=== PATIENT | female | born 1960 | race Caucasian/White ===

== ENCOUNTER → 2017-01-17 | Day surgery (SDC) | payer OTHER ==
[~2017-01-17] MED LIST: ANTIDEPRESSANT; BACITRACIN30 GM TOP; BENADRYL25 M3 PO; FLEXERIL10 M1 PO; FLEXERIL10 MG PO; IBUPROFEN600 MG PO; LEVAQUIN PO; LYRICA PO; MAGIC MOUTHWASH PO; MUSCLE RELAXER; NO MEDICATIONS; PAIN MED; TYLOX 5/500 CAP1 CAP PO; VIBRAMYCIN100 M1 PO; VICODIN 5/1 TAB 5/50 PO; VITAMIN D; [UNRECOGNIZED DRUG - MIXTURE] PO
--- NOTE | ~2017-01-17 | OR ---
Unit #: [id number] #: [id number] Patient: STONE ABRAMS [id number] [facility] [address] [facility]. [place], [place] [address] [id number] O MR#: [id number] NAME: STONE ABRAMS ROOM: Date of Procedure: 01/17/2017 Admission Date: 01/17/2017 Surgeon: Maximo Browne M.D. : 1960 Attending Physician: Maximo Browne M.D. Primary Care Physician: Vivek Degroot Aprn OPERATIVE REPORT PREOPERATIVE DIAGNOSIS Enlarging left anterior thigh soft tissue mass. POSTOPERATIVE DIAGNOSIS Enlarging left anterior thigh soft tissue mass. PROCEDURE PERFORMED Excisional biopsy of left thigh lipoma measuring 7.5 x 5 x 3 cm. ANESTHESIA General endotracheal anesthesia. ESTIMATED BLOOD LOSS Less than 10 mL. INDICATIONS FOR PROCEDURE Ms. Abrams is a 56-year-old female, who presents with an enlarging soft tissue mass in the anterior left thigh. By history, she believes she may have had some trauma to that area in the past. DESCRIPTION OF PROCEDURE The patient was admitted to [facility], positively identified, and transported to the operating room, and after induction of general endotracheal anesthesia using an LMA mask, she was prepped and draped in usual sterile fashion. In preoperative hold, I had marked the extent of the lesion and a vertical incision was made over the mass. I dissected down through the soft tissue and a multiloculated encapsulated lipoma was encountered in the subcutaneous tissue. It was all above the muscular fascia. I was able to completely excise the mass en bloc and it measured 7.5 x 5 x 3 cm. After the mass had been removed, I used the cautery to open up the loculated areas of the capsule and obtained hemostasis. The space was closed with 3-0 Vicryl interrupted sutures. The skin was reapproximated with 4-0 Monocryl running subcuticular closure and Dermabond skin adhesive. Sponges and needle counts were correct x3. The patient tolerated the procedure well and was transported to recovery in stable condition. Her significant other did not wait in the waiting area, so we will go over the orders with the patient and the significant other when he returns. Dictated by... Maximo Browne M.D. Unit #: [id number] #: [id number] Patient: STONE ABRAMS ANDRY/justin TD: 01/17/2017 10:11 JOB #: [id number] OPERATIVE REPORT Page 1 of 1 X Maximo Browne MD PROCEDURE OPERATIVE NOTE
== END | disposition home or self-care (01) ==
LOC: CSUR 06:41
DX: D17.24 Benign lipomatous neoplasm of skin and subcutaneous tissue of left leg (principal); E65 Localized adiposity; F17.210 Nicotine dependence, cigarettes, uncomplicated; M19.90 Unspecified osteoarthritis, unspecified site; J30.9 Allergic rhinitis, unspecified; Z88.0 Allergy status to penicillin; Z85.828 Personal history of other malignant neoplasm of skin; Z79.899 Other long term (current) drug therapy; Z98.890 Other specified postprocedural states; Z98.1 Arthrodesis status
CPT/HCPCS: 88304; J2250; J3010

== ENCOUNTER 2017-01-26 04:30 | Emergency (ER) | payer OTHER ==
[~2017-01-26] VITALS: Ht 170.2 cm; Wt 68.0 kg
--- NOTE | ~2017-01-26 | CR181 ---
[facility] A Service of [facility] RADIOLOGY TEXT RESULTS PATIENT: STONE ABRAMS LOCATION: [facility] : [birth year] UNIT #: [id number] AGE: [address]: Ingrid Goncalves APRN SEX: F ORDER DR: [id number] [facility]. [place], [place] [address] [id number] MR#: [id number] Acc #: [id number] NAME: STONE ABRAMS. : 1960 SEX: F STUDY DATE/TIME: 01/26/2017 5:23 UNIT: AGUILAR ROOM: STUDY DESCRIPTION: CR Lumbar Spine 2 or 3 Views Attending Physician: Ingrid Goncalves A.P.R.N. Ordering Physician: Ingrid Goncalves A.P.R.N. Primary Care Physician: Vivek Degroot Aprn MEDICAL IMAGING REPORT This report is preliminary unless electronic signature is present EXAM Lumbar spine series 01/26/2017 HISTORY 56-year-old female in the ED complaining of neck pain and low back pain after a fall 2 weeks ago. TECHNIQUE Three-view lumbar spine series. FINDINGS No fracture or other acute osseous abnormality is demonstrated. Severe degenerative facet arthropathy is present throughout the lower cervical spine, there is slight anterolisthesis at L3-4. Moderately severe degenerative disc space changes at L4-5 with more mild disc space narrowing throughout the remainder of the lumbar spine. IMPRESSION 1. No acute osseous abnormality. 2. Multilevel degenerative changes as noted above. Dictated by... Samuel Tobin M.D. THIS IS AN ELECTRONICALLY VERIFIED REPORT Samuel Tobin M.D. at 01/26/2017 9:49 PM SARATH/aj TD: 01/26/2017 08:26 JOB #: [id number] [facility] A Service of [facility] RADIOLOGY TEXT RESULTS PATIENT: STONE ABRAMS LOCATION: [facility] : 64 UNIT #: [id number] AGE: [address]: Ingrid Goncalves APRN SEX: F ORDER DR: MEDICAL IMAGING REPORT Page 1 of 1 COPY
--- NOTE | ~2017-01-26 | CR58 ---
[facility] A Service of [facility] RADIOLOGY TEXT RESULTS PATIENT: STONE ABRAMS LOCATION: [facility] : 64 UNIT #: [id number] AGE: [address]: Ingrid Goncalves APRN SEX: F ORDER DR: [id number] [facility]. [place], [place] [address] [id number] MR#: [id number] Acc #: [id number] NAME: STONE ABRAMS. : 1960 SEX: F STUDY DATE/TIME: 01/26/2017 5:16 UNIT: [facility] ROOM: STUDY DESCRIPTION: CR Cervical Spine 2 or 3 Views Attending Physician: Ingrid Goncalves A.P.R.N. Ordering Physician: Ingrid Goncalves A.P.R.N. Primary Care Physician: Vivek Degroot Aprn MEDICAL IMAGING REPORT This report is preliminary unless electronic signature is present EXAM Cervical spine series 01/26/2017 HISTORY 56-year-old female in the ED complaining of neck pain and back pain after a fall 2 weeks ago. TECHNIQUE Three-view cervical spine series. FINDINGS The exam shows no evidence of fracture or other acute osseous abnormality. Postop changes anterior cervical disc fusion surgery at C4-5 and C5-6. Fixation hardware appears well positioned. Moderate degenerative disc space changes above and below the fusion level at C3-4 and C6-7. Cervical vertebral alignment is normal. IMPRESSION 1. No acute osseous abnormality. 2. Postop changes anterior cervical disc fusion at C4-5 and C5-6. 3. Degenerative changes as noted above. Dictated by... Samuel Tobin M.D. THIS IS AN ELECTRONICALLY VERIFIED REPORT Samuel Tobin M.D. at 01/26/2017 9:49 PM SARATH/aj TD: 01/26/2017 08:24 JOB #: [id number] [facility] A Service [facility] RADIOLOGY TEXT RESULTS PATIENT: STONE ABRAMS LOCATION: [facility] : 64 UNIT #: [id number] AGE: [address]: Ingrid Goncalves APRN SEX: F ORDER DR: MEDICAL IMAGING REPORT Page 1 of 1 COPY
== END 2017-01-26 06:30 | disposition home or self-care (01) ==
LOC: CED 04:30
DX: S16.1XXA Strain of muscle, fascia and tendon at neck level, initial encounter (principal); F17.210 Nicotine dependence, cigarettes, uncomplicated; Z85.820 Personal history of malignant melanoma of skin; Z88.0 Allergy status to penicillin; Z88.8 Allergy status to other drugs, medicaments and biological substances; W01.0XXA Fall on same level from slipping, tripping and stumbling without subsequent striking against object, initial encounter; Y92.89 Other specified places as the place of occurrence of the external cause
CPT/HCPCS: 72040; 72100; 99283